=== PATIENT | male | born 2000 | race Two or more races ===

== ENCOUNTER 2020-02-14 13:49 | Emergency (ER) | payer MEDICAID ==
[~2020-02-14] VITALS: Ht 167.6 cm; Wt 65.0 kg
[2020-02-14] MEDS ORDERED: KETOROLAC 60MG/2ML VIAL IM ONE (14:45)
[2020-02-14 15:59] VITALS: BP 131/83
== END 2020-02-14 16:01 | disposition home or self-care (01) ==
LOC: ER 13:49
DX: R07.89 Other chest pain (principal)
CPT/HCPCS: 71045; 93005; 96374; 99283; J1885